=== PATIENT | male | born 1985 | race African-American/Black ===

== ENCOUNTER 2019-09-08 06:27 | Emergency (ER) | payer OTHER, SELFPAY ==
[2019-09-08 06:35] VITALS: BP 136/86; PULSE 15; RESP 18; TEMP 37.5; O2SAT 95
--- NOTE | 2019-09-08 07:38 | ED.URI ---
HPI - URI/Sore Throat General Chief Complaint: Upper Respiratory Infection Stated Complaint: flu s/s Time Seen by Provider: 09/08/19 06:41 Source: patient Mode of arrival: ambulatory Limitations: no limitations History of Present Illness HPI Narrative: Patient is a 34-year-old male who presents to the emergency department with complaint of flulike symptoms. Patient reports onset of symptoms yesterday. He complains of headache, myalgias, feeling weak cough, congestion, chills, and sweats. Patient states he has had coworkers that been ill with similar symptoms. Patient is uncertain if he has had a fever as he does not have a thermometer at home. Patient is otherwise healthy. MD elicited complaint: other (flu-like symptoms) Onset (ago): day(s) Context: sick contacts Associated symptoms: fever, chills, myalgias, headache, nasal congestion, cough and ear pain Treatments prior to arrival: ibuprofen Related Data Home Medications Medication Instructions Recorded Confirmed Daily Multivitamin 1 tab-cap PO DAILY 09/08/19 09/08/19 Allergies Allergy/AdvReac Type Severity Reaction Status Date / Time No Known Allergies Allergy Verified 09/08/19 06:37 Review of Systems Review of Systems: All systems reviewed & are unremarkable except as noted in HPI and below Constitutional: Constitutional: Reports chills, Reports excessive sweating and Reports fatigue ENT: Reports otalgia, Reports nasal congestion and Reports sore throat Respiratory: Respiratory: Reports cough Gastrointestinal: Gastrointestinal: Denies abdominal pain, Denies diarrhea, Denies nausea and Denies vomiting Musculoskeletal: Musculoskeletal: Reports myalgias Neurologic: Reports headache(s) PMFSH Past Medical History Medical History (Updated 09/08/19 @ 07:44 by Stacy Gold MD) Achilles tendon rupture DVT (deep venous thrombosis) Surgical History Surgical History (Updated 09/08/19 @ 07:41 by Stacy Gold MD) H/O Achilles tendon repair History of arthroscopy of left knee Social History Social History (Updated 06/29/19 @ 04:11 by Rosalia Platt MD) Social History: Denies tobacco, alcohol, drug use Smoking status: Never smoker Exam Const: General: cooperative, no acute distress and alert Nutritional Appearance: well nourished Orientation/consciousness: patient oriented x3 Limitations: no limitations HENMT: Mouth: Yes lip normal and Yes moist mucous membranes Resp: Effort & Inspection: normal respiratory effort Auscultation: clear to auscultation bilaterally Cardio: Rate: regular rate Rhythm: regular rhythm GI: GI Palp: Yes Soft to palpation and No Tenderness to palpation present (GI) Auscultation: normal bowel sounds Skin: General skin exam: normal color Neuro: General: patient oriented x3 Cognition (Neuro): normal cognition Speech: normal speech Extrem: General: normal to inspection, full ROM and no clubbing, cyanosis or edema Psych: Mental Status: mental status grossly normal Affect: normal affect Attitude: cooperative Course Course Emergency Course: Influenza testing negative. Patient counseled on management of viral syndrome. Vital Signs Vital signs: Vital Signs Temperature 99.5 F 09/08/19 06:35 Pulse Rate 15 L 09/08/19 06:35 Respiratory Rate 18 09/08/19 06:35 Blood Pressure 136/86 09/08/19 06:35 Pulse Oximetry 95 09/08/19 06:35 Temperature 99.5 F 09/08/19 06:35 Pulse Rate 15 L 09/08/19 06:35 Respiratory Rate 18 09/08/19 06:35 Blood Pressure 136/86 09/08/19 06:35 Pulse Oximetry 95 09/08/19 06:35 MDM - URI/Sore Throat Lab Data Attestation: I reviewed the patient's lab results. Labs: Influenza A Screen Negative Reference Range: Negative Influenza B Screen Negative Reference Range: Negative Critical Care Time Critical Care Time Critical Care Time: No Discharge Plan Discharge Clinical Impression:
[2019-09-08 07:50] VITALS: RESP 16
== END 2019-09-08 07:50 | disposition home or self-care (01) ==
PROVIDERS: Emergency Provider Emergency Medicine
DX: J11.1 Influenza due to unidentified influenza virus with other respiratory manifestations (principal)
CPT/HCPCS: 87804; 99283

== ENCOUNTER 2019-09-09 10:37 | Emergency (ER) | payer OTHER, SELFPAY ==
--- NOTE | ~2019-09-09 | XR_ITS ---
EXAMINATION: XR chest 2V EXAM DATE: 09/09/2019 12:47 INDICATION: cough, fever, dyspnea. TECHNIQUE: Frontal and lateral projections of the chest obtained and reviewed. Comparison is made to prior examination from 10/29/2016. FINDINGS: The lungs are clear. There are no pleural effusions. The cardiomediastinal silhouette is within normal limits. There is no pneumothorax suspected. The bones and soft tissues are unremarkab le. IMPRESSION: Normal chest x-ray exam. Reviewed, dictated and finalized at location A. E TEACHER IMPRESSION: Normal chest x-ray exam.
[2019-09-09 11:01] VITALS: BP 140/81; PULSE 80; RESP 18; TEMP 36.7; O2SAT 97
--- NOTE | 2019-09-09 11:54 | ED.GENADULT ---
HPI - General Adult General Chief complaint: Unspecified Stated complaint: diff breathing, here yesterday for same Time Seen by Provider: 09/09/19 11:53 Source: patient Mode of arrival: ambulatory Limitations: no limitations History of Present Illness HPI narrative: This is a 34 year old male that presents to the ER for cold symptoms x 3 days. Reports fever, cough, congestion and rhinorrhea. Reports constant tightness in his chest for the last couple of days. Reports sharp pains in his chest and back when he coughs. Reports he was seen here for this yesterday. Reports he has had no relief in symptoms. Denies sore throat or shortness of breath. Related Data Home Medications Medication Instructions Recorded Confirmed Daily Multivitamin 1 tab-cap PO DAILY 09/08/19 09/08/19 Allergies Allergy/AdvReac Type Severity Reaction Status Date / Time No Known Allergies Allergy Verified 09/09/19 11:07 Review of Systems Review of Systems: Narrative: CONSTITUTIONAL: Reports fever, chills ENT: Reports rhinorrhea, congestion. Denies sore throat, or otalgia. CARDIOVASCULAR: Reports chest pain. Denies edema. RESPIRATORY: Reports cough. Denies dyspnea. All systems reviewed & are unremarkable except as noted in HPI and below PMFSH Past Medical History Medical History (Updated 09/09/19 @ 13:26 by Dania Hector PA-C) Achilles tendon rupture DVT (deep venous thrombosis) Surgical History Surgical History (Updated 09/08/19 @ 07:41 by Stacy Gold MD) H/O Achilles tendon repair History of arthroscopy of left knee Social History Social History (Updated 06/29/19 @ 04:11 by Rosalia Platt MD) Social History: Denies tobacco, alcohol, drug use Smoking status: Never smoker Gender identity (if verbalized by the patient): Male Exam Narrative: Exam Narrative: GENERAL: Well-appearing, well-nourished, and in no acute distress. HEAD: Normocephalic, atraumatic. EYES: EOMI. ENT: Turbinates swollen and pale. Mucous membranes moist. Oropharynx with mild symmetric tonsillar hypertrophy, no exudate or other lesions. Bilateral TMs pearly marte non-bulging NECK: Supple. No adenopathy or masses. CHEST: Clear to auscultation. No respiratory distress. No wheezes rales or rhonchi HEART: Regular rate and rhythm. No murmur heard. Normal peripheral pulses. EXTREMITIES: Normal range of motion. No edema. SKIN: Warm, dry, no rash. NEURO: No focal deficits. Alert and oriented x3. PSYCH: Normal mood and affect Course Vital Signs Vital signs: Vital Signs Temperature 98.0 F 09/09/19 11:01 Pulse Rate 80 09/09/19 11:01 Respiratory Rate 18 09/09/19 11:01 Blood Pressure 140/81 09/09/19 11:01 Pulse Oximetry 97 09/09/19 11:01 Temperature 98.0 F 09/09/19 11:01 Pulse Rate 89 09/09/19 12:29 Respiratory Rate 16 09/09/19 12:29 Blood Pressure 140/81 09/09/19 11:01 Pulse Oximetry 97 09/09/19 11:01 Medical Decision Making MDM Narrative Medical decision making narrative: Patient presents to the ER for cold symptoms x 3 days. Also reports some chest tightness for the last couple days. Reports improvement with nebulizer treatment. He is afebrile and nontoxic-appearing. Influenza A is positive. CBC and metabolic panel without acute changes. Troponin and d-dimer are not elevated. Chest x-ray without acute changes. Patient was updated on case findings. He was instructed on [id number] symptomatic care as he is out of treatment window and otherwise healthy. He is to follow-up with primary care doctor. He was given warnings to return to the ER Vital Signs Vital Signs: Vital Signs Temperature 98.0 F 09/09/19 11:01 Pulse Rate 80 09/09/19 11:01 Respiratory Rate 18 09/09/19 11:01 Blood Pressure 140/81 09/09/19 11:01 Pulse Oximetry 97 09/09/19 11:01 Temperature 98.0 F 09/09/19 11:01 Pulse Rate 89 09/09/19 12:29 Respiratory Rate 16 09/09/19 12:29 Blood Pressure 140/8
--- NOTE | 2019-09-09 12:03 | ECG_ITS ---
Measurements Intervals [place] Rate: 77 P: 152 [place]: 151 QRS: -20 QRSD: 86 T: -25 QT: 331 QTc: 376 Interpretive Statements ECTOPIC ATRIAL RHYTHM POSSIBLE LEFT ATRIAL ENLARGEMENT BORDERLINE T WAVE ABNORMALITY- INFERIOR LEADS BASELINE ARTIFACT- I, II, AVR, AVF ABNORMAL ECG Electronically Signed On 09-09-2019 13:05:24 [employer] BUSINESS DEVELOPMENT MANAGER by Domingo Sanchez D.O.
[2019-09-09] MEDS: ALBUTEROL SULFATE NEB 2.5 MG/0.5 ML INH 5 MG INHALATION (12:19)
[2019-09-09] MEDS: IPRATROPIUM BR 0.02% INH SOLN 0.5 MG/2.5 ML VIAL INHALATION (12:20)
[2019-09-09 12:21] VITALS: PULSE 79; RESP 11
[2019-09-09 12:29] VITALS: PULSE 89; RESP 16
[2019-09-09 12:34] LABS: Basophils Percent Auto 0.5 % (0.2-1.2); Hemoglobin 15.9 g/dL (14.0-18.0); Immature Granulocyte Absolute 0.02 K/mm3 (0.00-0.031); Immature Granulocyte Percent A 0.3 % (0-0.5); Lymphocytes Absolute Auto 1.16 K/mm3 (0.9-3.2); Lymphocytes Percent Auto 17.6 % (18.3-44.2); Mean Corpuscular HGB Conc 33.1 g/dl (32-36); Mean Corpuscular Hemoglobin 28.8 pg (26-34); Mean Platelet Volume 10.1 fl (7.4-10.4); Monocytes Absolute Auto 1.2 K/mm3 (0.1-0.6); Monocytes Percent Auto 17.4 % (2.6-8.5); Neutrophils Absolute Auto 4.2 K/mm3 (1.3-6.7); Neutrophils Percent Auto 64.2 % (45.5-73.1); Platelet Count Result 206 k/mm3 (150-375); Red Blood Count 5.52 M/mm3 (4.6-6.20); Red Cell Distribution Width 12.7 % (11.5-14.5); White Blood Count 6.6 K/mm3 (4.5-10.0)
[2019-09-09 12:45] LABS: Blood Urea Nitrogen 13 mg/dL (9-20); Calcium 9.5 mg/dL (8.4-10.2); Carbon Dioxide 27 mmol/L (22-30); Chloride 96 mmol/L (98-107); Estimated CRCL calculation 97 ml/min; Estimated Glomerular Filt Rate > 60; Glucose 86 mg/dL (75-110); Potassium 3.8 mmol/L (3.4-5.0); Sodium 137 mmol/L (137-145)
[2019-09-09 12:49] LABS: D Dimer 0.39 ug/mL (<0.48)
[2019-09-09 12:57] LABS: Troponin I < 0.012 ng/mL (0.000-0.034)
[2019-09-09 15:26] VITALS: BP 142/84; PULSE 87; RESP 16; O2SAT 97
== END 2019-09-09 14:00 | disposition home or self-care (01) ==
PROVIDERS: Physician Assistant; Emergency Provider Emergency Medicine
DX: J10.1 Influenza due to other identified influenza virus with other respiratory manifestations (principal); Z86.718 Personal history of other venous thrombosis and embolism
CPT/HCPCS: 36415; 71046; 80048; 84484; 85025; 85380; 87804; 93005; 94640; 99284

== ENCOUNTER 2020-04-14 16:06 | Emergency (ER) | payer OTHER, SELFPAY ==
[2020-04-14] VITALS (19 sets, daily range): BP systolic 135–182; BP diastolic 68–94; PULSE 78–102; RESP 12–20; TEMP 37.3–38.5; O2SAT 97–100
--- NOTE | ~2020-04-14 | CT_ITS ---
EXAMINATION: CT abdomen pelvis w con DATE: 04/14/2020 18:50 INDICATION: Epigastric abdominal pain. Fever. Flank pain. TECHNIQUE: Computed tomography (CT) of the abdomen and pelvis was performed with 100 mL Omnipaque 350 intravenous contrast. Automated exposure control and iterative reconstruction technique were employe d. The dose-length product was 1194.29 mGy-cm. COMPARISON: CT abdomen and pelvis 03/06/2017 FINDINGS: The visualized portions of the lung bases demonstrate a calcified nodule in right lung, con sistent with old granulomatous disease. There are groundglass opacities in the lingula, consistent wi th pneumonia. No pleural effusion. The heart size is normal. No pericardial effusion. There is diffus e hepatic steatosis. The gallbladder, spleen, pancreas, adrenal glands, and kidneys are normal. There are no dilated loops of bowel. The appendix is normal. There are no pathologically enlarged lymph no sherwin. There is no free intraperitoneal fluid. There is mild thoracolumbar spondylosis. IMPRESSION: 1. Mild pneumonia in the lingula. Reviewed, dictated and finalized at location A.
--- NOTE | ~2020-04-14 | XR_ITS ---
EXAMINATION: XR chest 1V portable DATE: 04/14/2020 17:28 INDICATION: Pleuritic chest pain. Fever and chills. TECHNIQUE: A single frontal view of the chest was obtained on 2 radiographs. COMPARISON: Chest 2 views 09/09/2019, CT abdomen and pelvis 03/06/2017 FINDINGS: A calcified left lung nodule is consistent with old granulomatous disease. There are mild a irspace opacities in left lower lung zone. No pleural effusion or pneumothorax. The heart size is nor mal. IMPRESSION: 1. Mild airspace opacities in left lower lung zone, consistent with atelectasis versus pneumonia. Reviewed, dictated and finalized at location A.
--- NOTE | 2020-04-14 17:08 | ECG_ITS ---
Measurements Intervals [place] Rate: 94 P: 62 [place]: 147 QRS: 18 QRSD: 93 T: 31 QT: 327 QTc: 409 Interpretive Statements SINUS RHYTHM BASELINE WANDER- I, III, AVR, AVL, AVF, V1-V6 BORDERLINE ECG Electronically Signed On 04-14-2020 20:47:45 CDT by Domingo Sanchez D.O.
--- NOTE | 2020-04-14 17:13 | ED.FEVER ---
HPI - Fever General Chief Complaint: Upper Respiratory Infection Stated Complaint: chills, fever, aches, headache, covid symptoms Time Seen by Provider: 04/14/20 16:45 Source: patient Mode of arrival: ambulatory Limitations: no limitations History of Present Illness HPI Narrative: This is a 34-year-old male that presents the emergency department for fever since this afternoon. Associated with congestion, nausea, flank pain. Reports there have been positive COVID cases at his work. Reports chest pain with deep breathing. Denies cough, shortness of breath, dysuria, hematuria. Related Data Home Medications Medication Instructions Recorded Confirmed Daily Multivitamin 1 tab-cap PO DAILY 09/08/19 09/08/19 Allergies Allergy/AdvReac Type Severity Reaction Status Date / Time No Known Allergies Allergy Verified 09/09/19 11:07 Review of Systems Review of Systems: Narrative: CONSTITUTIONAL: Reports fever, chills ENT: Reports congestion. Denies sore throat, or otalgia. CARDIOVASCULAR: Reports chest pain RESPIRATORY: Denies cough or dyspnea. GASTROINTESTINAL: Reports abdominal pain, nausea. Denies vomiting, or diarrhea. GENITOURINARY: Denies dysuria or hematuria. All systems reviewed & are unremarkable except as noted in HPI and below PMFSH Past Medical History Medical History (Updated 04/14/20 @ 19:44 by Dania Hector PA-C) Achilles tendon rupture DVT (deep venous thrombosis) Surgical History Surgical History (Updated 09/08/19 @ 07:41 by Stacy Gold MD) H/O Achilles tendon repair History of arthroscopy of left knee Social History Social History (Updated 06/29/19 @ 04:11 by Rosalia Platt MD) Social History: Denies tobacco, alcohol, drug use Smoking status: Never smoker Gender identity (if verbalized by the patient): Male Exam Narrative: Exam Narrative: GENERAL: Well-appearing, well-nourished, and in no acute distress. HEAD: Normocephalic, atraumatic. EYES: EOMI. ENT: Nares clear, no rhinorrhea or epistaxis. Mucous membranes moist. Oropharynx without tonsillar hypertrophy exudate or other lesions. Bilateral TMs pearly marte non-bulging NECK: Supple. No adenopathy or masses. CHEST: Clear to auscultation. No respiratory distress. No wheezes rales or rhonchi HEART: Regular rate and rhythm. No murmur heard. Normal peripheral pulses. ABDOMEN: Soft, nontender, nondistended, normal active bowel sounds. EXTREMITIES: Normal range of motion. No edema. SKIN: Warm, dry, no rash. NEURO: No focal deficits. Alert and oriented x3. PSYCH: Normal mood and affect Course Vital Signs Vital signs: Vital Signs Temperature 101.3 F H 04/14/20 16:22 Pulse Rate 96 04/14/20 16:22 Respiratory Rate 20 04/14/20 16:22 Blood Pressure 182/94 H 04/14/20 16:22 Pulse Oximetry 100 04/14/20 16:22 Temperature 99.1 F 04/14/20 18:27 Pulse Rate 101 H 04/14/20 19:15 Respiratory Rate 18 04/14/20 19:01 Blood Pressure 157/88 H 04/14/20 19:01 Pulse Oximetry 97 04/14/20 19:15 MDM - Fever MDM Narrative Medical decision making narrative: Patient presents the emergency department for fever, flank pain, congestion. Reports positive COVID cases at his work. Patient febrile upon arrival, given antipyretic while in the ED. Blood pressure elevated on arrival to 182/94, this improved without intervention. Most recent blood pressure 157/88. CBC with leukocytosis to 15. Metabolic panel with mild elevation in ALT, which seems to be chronic for patient. Lipase is normal. UA without evidence of infection. Lactic acid is normal. EKG without concerning changes. Troponin and d-dimer are negative. Chest x-ray shows airspace opacities in the left lower lung zone. CT of the abdomen and pelvis shows mild pneumonia in the lingula. SARS-CoV-2 was sent. Patient is stable and felt appropriate further outpatient evaluation. He will be started on oral antibiotics for pneumonia. He is to follow-up with kelly
[2020-04-14] MEDS: IBUPROFEN 600 MG TABLET PO (17:33)
[2020-04-14 17:36] LABS: Basophils Absolute Auto 0.1 K/mm3 (0.0-0.1); Basophils Percent Auto 0.3 % (0.2-1.2); Eosinophils Absolute Auto 0.1 K/mm3 (0-0.3); Eosinophils Percent Auto 0.9 % (0-4.4); Hematocrit 44.3 % (42.0-52.0); Hemoglobin 15.7 g/dL (14.0-18.0); Immature Granulocyte Absolute 0.05 K/mm3 (0.00-0.031); Immature Granulocyte Percent A 0.3 % (0-0.5); Lymphocytes Absolute Auto 2.04 K/mm3 (0.9-3.2); Lymphocytes Percent Auto 13.5 % (18.3-44.2); Mean Corpuscular HGB Conc 35.4 g/dl (32-36); Mean Corpuscular Hemoglobin 29.9 pg (26-34); Mean Corpuscular Volume 84.4 fl (80-100); Mean Platelet Volume 9.9 fl (7.4-10.4); Monocytes Percent Auto 6.9 % (2.6-8.5); Neutrophils Absolute Auto 11.8 K/mm3 (1.3-6.7); Neutrophils Percent Auto 78.1 % (45.5-73.1); Platelet Count Result 226 k/mm3 (150-375); Red Blood Count 5.25 M/mm3 (4.6-6.20); Red Cell Distribution Width 12.7 % (11.5-14.5); White Blood Count 15.1 K/mm3 (4.5-10.0)
[2020-04-14 17:48] LABS: Lactic Acid Reflex 1.8 mmol/L (0.7-2.1)
[2020-04-14 17:51] LABS: Alanine Aminotransferase 89 U/L (4-50); Albumin Level 4.6 g/dL (3.5-5.1); Alkaline Phosphatase 47 U/L (38-126); Anion Gap 11 mmol/L (8-16); Aspartate Amino Transferase 57 U/L (17-59); Bilirubin,Total 0.7 mg/dL (0.2-1.3); Blood Urea Nitrogen 11 mg/dL (9-20); CRP 0.6 mg/dL (<1.0); Calcium 9.5 mg/dL (8.4-10.2); Carbon Dioxide 23 mmol/L (22-30); Chloride 104 mmol/L (98-107); Estimated Glomerular Filt Rate > 60; Glucose 96 mg/dL (75-110); Lactate Dehydrogenase 584 U/L (313-618); Lipase 54 U/L (23-300); Potassium 4.1 mmol/L (3.4-5.0); Sodium 138 mmol/L (137-145)
[2020-04-14 17:58] LABS: Add Urine Microscopic? YES; Appearance Urine Clear (Clear); Bilirubin Urine Negative (Negative); Blood Urine Negative (Negative); Color Urine Straw (Yellow); Glucose Urine UA Negative (Negative); Ketones Urine Negative (Negative); Leukocyte Esterase Ur Negative LEU/UL (Negative); Mucus Urine Rare /lpf; Nitrate Urine Negative (Negative); Protein Urine Negative (Negative); RBC Urine 0-2 /hpf (0-2); Specific Grav Ur 1.011 (1.001-1.035); Urobilinogen Urine Negative mg/dL (<2.0); WBC Urine 0-3 /hpf
[2020-04-14 18:00] LABS: Troponin I < 0.012 ng/mL (0.000-0.034)
[2020-04-14 18:04] LABS: Prothrombin Time 12.4 Seconds (11.1-14.7)
[2020-04-14 18:05] LABS: Partial Thromboplastin Time 26.6 SECONDS (22.3-36.8)
[2020-04-14 18:18] LABS: D Dimer 0.27 ug/mL (<0.48)
[2020-04-16 12:20] LABS: SARS-CoV-2 RNA PCR Negative
== END 2020-04-14 20:16 | disposition home or self-care (01) ==
PROVIDERS: Physician Assistant; Emergency Provider Emergency Medicine
DX: Z20.828 Contact with and (suspected) exposure to other viral communicable diseases (principal); J18.9 Pneumonia, unspecified organism
CPT/HCPCS: 36415; 71045; 74177; 80053; 81001; 83605; 83615; 83690; 84484; 85025; 85380; 85610; 85730; 86140; 87040; 87635; 93005; 99284; A9270; C9803; Q9967; U0003

== ENCOUNTER 2020-10-12 22:18 | Emergency (ER) | payer OTHER, SELFPAY ==
--- NOTE | ~2020-10-12 | CT_ITS ---
EXAMINATION: CT abdomen pelvis wo con DATE: 10/12/2020 22:58 INDICATION: Right flank pain. Nausea. TECHNIQUE: Computed tomography (CT) of the abdomen and pelvis was performed without intravenous contr ast. The dose-length product was 1450.38 mGy-cm. Automated exposure control and iterative reconstruct ion technique were employed. COMPARISON: CT dated 04/14/2020 FINDINGS: Heart size is normal. No significant pleural or pericardial effusion. No significant vascul ar abnormality. No lymphadenopathy. Fatty infiltration of the liver. Gallbladder is present. The spleen, pancreas, adrenal glands and kid neys are unremarkable. No significant hydronephrosis. Normal appendix. Nonobstructive bowel gas patte rn. No free air or free fluid. IMPRESSION: 1. No acute abdominal abnormality. 2: Hepatic steatosis. Reviewed, dictated and finalized at location A. 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
[2020-10-12 22:22] VITALS: BP 151/89; PULSE 71; RESP 16; TEMP 37; O2SAT 100
[2020-10-12] MEDS: ONDANSETRON INJ 4 MG/2 ML VIAL IV PUSH (22:40)
[2020-10-12] MEDS: KETOROLAC 30 MG/ML VIAL (*BKC) IV PUSH (22:40)
[2020-10-12] MEDS: SODIUM CHLORIDE 0.9% IV 1,000 ML 999 ML IV CONT (22:40)
[2020-10-12 22:50] LABS: Basophils Absolute Auto 0.1 K/mm3 (0.0-0.1); Basophils Percent Auto 0.6 % (0.2-1.2); Eosinophils Absolute Auto 0.2 K/mm3 (0-0.3); Eosinophils Percent Auto 2.9 % (0-4.4); Hematocrit 43.2 % (42.0-52.0); Immature Granulocyte Absolute 0.03 K/mm3 (0.00-0.031); Immature Granulocyte Percent A 0.4 % (0-0.5); Lymphocytes Absolute Auto 2.85 K/mm3 (0.9-3.2); Lymphocytes Percent Auto 36.4 % (18.3-44.2); Mean Corpuscular HGB Conc 34.7 g/dl (32-36); Mean Corpuscular Hemoglobin 30.1 pg (26-34); Mean Corpuscular Volume 86.7 fl (80-100); Mean Platelet Volume 9.7 fl (7.4-10.4); Monocytes Absolute Auto 0.8 K/mm3 (0.1-0.6); Monocytes Percent Auto 9.8 % (2.6-8.5); Neutrophils Absolute Auto 3.9 K/mm3 (1.3-6.7); Neutrophils Percent Auto 49.9 % (45.5-73.1); Platelet Count Result 231 k/mm3 (150-375); Red Blood Count 4.98 M/mm3 (4.6-6.20); Red Cell Distribution Width 12.8 % (11.5-14.5); White Blood Count 7.8 K/mm3 (4.5-10.0)
--- NOTE | 2020-10-12 22:52 | PC.NURSE ---
pt to CT at this time
[2020-10-12 23:02] LABS: Alanine Aminotransferase 179 U/L (4-50); Albumin Level 4.4 g/dL (3.5-5.1); Alkaline Phosphatase 48 U/L (38-126); Anion Gap 7 mmol/L (8-16); Aspartate Amino Transferase 104 U/L (17-59); Bilirubin,Total 0.5 mg/dL (0.2-1.3); Blood Urea Nitrogen 12 mg/dL (9-20); Calcium 9.6 mg/dL (8.4-10.2); Carbon Dioxide 29 mmol/L (22-30); Chloride 102 mmol/L (98-107); Estimated CRCL calculation 114 ml/min; Estimated Glomerular Filt Rate > 60; Glucose 87 mg/dL (75-110); Lipase 91 U/L (23-300); Potassium 3.8 mmol/L (3.4-5.0); Sodium 138 mmol/L (137-145)
[2020-10-12 23:11] LABS: Add Urine Microscopic? NO; Appearance Urine Clear (Clear); Bilirubin Urine Negative (Negative); Blood Urine Negative (Negative); Color Urine Straw (Yellow); Glucose Urine UA Negative (Negative); Ketones Urine Negative (Negative); Leukocyte Esterase Ur Negative LEU/UL (Negative); Nitrate Urine Negative (Negative); Protein Urine Negative (Negative); Specific Grav Ur 1.005 (1.001-1.035); Urobilinogen Urine Negative mg/dL (<2.0); WBC Urine 0-3 /hpf
[2020-10-12 23:31] VITALS: BP 140/79; PULSE 70; RESP 18; O2SAT 99
--- NOTE | 2020-10-13 00:11 | ED.GENADULT ---
HPI - General Adult General Chief complaint: Abdominal Pain Stated complaint: R flank pain Time Seen by Provider: 10/12/20 22:27 History of Present Illness HPI narrative: Patient a 35-year-old gentleman who presents the emergency department with chief complaint of abdominal pain and flank pain. Patient states that he has been having epigastric and right flank pain for several weeks states that its not improved by anything reports that is now mostly localized to more of the right flank area. Patient states that it is not worsened by anything nor is it improved by anything. Patient denies fever denies nausea vomiting or diarrhea. Patient denies blood in his urine denies blood in his stool. Related Data Home Medications Medication Instructions Recorded Confirmed Daily Multivitamin 1 tab-cap PO DAILY 09/08/19 09/08/19 Allergies Allergy/AdvReac Type Severity Reaction Status Date / Time No Known Allergies Allergy Verified 09/09/19 11:07 Review of Systems Review of Systems: Narrative: A 10 system review of systems was completed on the patient and is negative except for what is stated in the HPI. Nursing and ancillary documentation was reviewed. [facility] Past Medical History Medical History Achilles tendon rupture DVT (deep venous thrombosis) Surgical History Surgical History H/O Achilles tendon repair History of arthroscopy of left knee Social History Social History Social History: Denies tobacco, alcohol, drug use Smoking status: Never smoker Gender identity (if verbalized by the patient): Male Exam Narrative: Exam Narrative: GENERAL: Well-appearing, well-nourished, and in no acute distress. HEAD: Normocephalic, atraumatic. EYES: PERRLA and EOMI. ENT: Nares clear, no rhinorrhea or epistaxis. Mucous membranes moist. NECK: Supple. CHEST: Clear to auscultation. No respiratory distress. HEART: Regular rate and rhythm. No murmur heard. Normal peripheral pulses. ABDOMEN: Soft, nontender, nondistended, normal active bowel sounds. EXTREMITIES: Normal range of motion. No edema. SKIN: Warm, dry, no rash. NEURO: No focal deficits. Alert and oriented x3. PSYCH: Normal mood and affect. Course Course Emergency Course: CT scan of the abdomen pelvis showed no evidence of acute abnormality. Liver enzymes were mildly elevated on his electrolytes otherwise there is no abnormalities in the labs urinalysis was negative. Vital Signs Vital signs: Vital Signs Temperature 37.0 C 10/12/20 22:22 Pulse Rate 71 10/12/20 22:22 Respiratory Rate 16 10/12/20 22:22 Blood Pressure 151/89 H 10/12/20 22:22 Pulse Oximetry 100 10/12/20 22:22 Temperature 37.0 C 10/12/20 22:22 Pulse Rate 70 10/12/20 23:31 Respiratory Rate 18 10/12/20 23:31 Blood Pressure 140/79 10/12/20 23:31 Pulse Oximetry 99 10/12/20 23:31 Medical Decision Making Vital Signs Vital Signs: Vital Signs Temperature 37.0 C 10/12/20 22:22 Pulse Rate 71 10/12/20 22:22 Respiratory Rate 16 10/12/20 22:22 Blood Pressure 151/89 H 10/12/20 22:22 Pulse Oximetry 100 10/12/20 22:22 Temperature 37.0 C 10/12/20 22:22 Pulse Rate 70 10/12/20 23:31 Respiratory Rate 18 10/12/20 23:31 Blood Pressure 140/79 10/12/20 23:31 Pulse Oximetry 99 10/12/20 23:31 Lab Data Result diagrams: 10/12/20 22:43 10/12/20 22:43 Labs: Lab Results 10/12/20 10/12/20 10/12/20 Range/Units 22:43 22:43 22:43 WBC 7.8 (4.5-10.0) K/mm3 RBC 4.98 (4.6-6.20) M/mm3 Hgb 15.0 (14.0-18.0) g/dL Hct 43.2 (42.0-52.0) % MCV 86.7 (80-100) fl MCH 30.1 (26-34) pg MCHC 34.7 (32-36) g/dl RDW 12.8 (11.5-14.5) % Plt Count 231 (150-375) k/mm3 MPV 9.7 (7.4-10.4) fl Immatu
[2020-10-13 00:40] VITALS: BP 119/85; PULSE 65; RESP 18; O2SAT 99
== END 2020-10-13 00:41 | disposition home or self-care (01) ==
PROVIDERS: Emergency Provider Emergency Medicine
DX: R10.9 Unspecified abdominal pain (principal); Z86.718 Personal history of other venous thrombosis and embolism; K76.0 Fatty (change of) liver, not elsewhere classified
CPT/HCPCS: 36415; 74176; 80053; 81003; 83690; 85025; 96361; 96374; 96375; 99284; J1885; J2405; J7030

== ENCOUNTER 2020-10-16 18:33 | Emergency (ER) | payer OTHER, SELFPAY ==
--- NOTE | 2020-10-16 18:34 | ED.GENADULT ---
HPI - General Adult General Chief complaint: Urogenital-Male Stated complaint: Stomach pain,flank pain Time Seen by Provider: 10/16/20 18:34 Source: patient Mode of arrival: ambulatory Limitations: no limitations History of Present Illness HPI narrative: 35-year-old male patient presents to the [facility] with complaints of right flank and abdominal pain for the past 2 weeks that has gotten increasingly worse past 3 to 4 days. Patient was seen at [place] [facility] about 3 days ago and had a full work-up including a CT and full blood test. At that time there is nothing noted to cause his pain. Was negative for any kidney stones however it was noted that his liver enzymes were high. Patient was told to follow-up with primary care but states he never followed up with anybody states he does not have a primary care provider at this time. Patient denies any alcohol use denies taking any medications with a lot of Tylenol in it. Related Data Home Medications Medication Instructions Recorded Confirmed No Home Medications 10/16/20 10/16/20 Allergies Allergy/AdvReac Type Severity Reaction Status Date / Time No Known Allergies Allergy Verified 10/16/20 18:58 Review of Systems Review of Systems: Narrative: CONSTITUTIONAL: Denies fever, chills, or sweats. EYES: Denies visual changes, redness, or discharge. ENT: Denies rhinorrhea, congestion, sore throat, or otalgia. CARDIOVASCULAR: Denies chest pain, palpitations, or edema. RESPIRATORY: Denies cough or dyspnea. GASTROINTESTINAL: Positive abdominal pain, denies nausea, vomiting, or diarrhea. GENITOURINARY: Denies dysuria or hematuria. SKIN: Denies rash or itching. MUSCULOSKELETAL: Denies back pain, joint pain, or myalgia. NEUROLOGIC: Denies headache, numbness, or weakness. PSYCHIATRIC: Denies anxiety or depression. [facility] Past Medical History Medical History Achilles tendon rupture DVT (deep venous thrombosis) Surgical History Surgical History H/O Achilles tendon repair History of arthroscopy of left knee Social History Social History Social History: Denies tobacco, alcohol, drug use Smoking status: Never smoker Gender identity (if verbalized by the patient): Male Comments At the time of my signature I agree with nursing past medical history, surgical, social, and family history. There is no relevant family history pertinent to the presenting complaint. Exam Narrative: Exam Narrative: GENERAL: Well-appearing, well-nourished, and in no acute distress. HEAD: Normocephalic, atraumatic. EYES: PERRLA and EOMI. ENT: Nares clear, no rhinorrhea or epistaxis. Mucous membranes moist. NECK: Supple. No lymphadenopathy CHEST: Clear to auscultation. No respiratory distress. HEART: Regular rate and rhythm. No murmur heard. Normal peripheral pulses. ABDOMEN: Soft, nondistended. No guarding, rebound tenderness, or rigid. No pulsatilla masses. Bowel sounds present in all four quadrants. No organomegaly. Negative Wynn?s sign. No periumbicial tenderness. No Supra public tenderness or distension. Good femoral pulses bilaterally. No hernia noted. No scars or surface trauma. EXTREMITIES: Normal range of motion. No edema. SKIN: Warm, dry, no rash. NEURO: No focal deficits. Alert and oriented x3. Course Vital Signs Vital signs: Vital signs reviewed Medical Decision Making Differential Diagnosis Differential Diagnosis: Differential diagnosis: Uncomplicated lower UTI, uncomplicated UTI, polynephritis, penile trauma,balanoposthitis, phimosis, paraphimosis, testicular torsion, epididymitis, prostatitis, varicocele, spermatocele, hydrocele, hernia. Appendicitis, gallbladder disease, pancreatitis, lower lobe pneumonia,AAA, AMI or ACS, DKA, diverticulitis. Discussed with patient that we did do a urine dip on him today which was co
[2020-10-16 18:50] VITALS: BP 150/98; PULSE 80; RESP 18; TEMP 36.7; O2SAT 100
== END 2020-10-16 19:21 | disposition home or self-care (01) ==
PROVIDERS: Emergency Provider Nurse Practitioner Family
DX: R10.9 Unspecified abdominal pain (principal); Z86.718 Personal history of other venous thrombosis and embolism
CPT/HCPCS: 81003; 99212; G0463

== ENCOUNTER 2021-10-02 14:05 | Emergency (ER) | payer BC, SELFPAY ==
[2021-10-02 14:13] VITALS: BP 143/85; PULSE 70; RESP 16; TEMP 36.7; O2SAT 100
--- NOTE | 2021-10-02 14:23 | ED.BACK ---
HPI - Back Pain/Injury General Chief Complaint: Back Pain/Injury Stated Complaint: lower back pain Time Seen by Provider: 10/02/21 14:23 Source: patient Mode of arrival: ambulatory Limitations: no limitations History of Present Illness HPI Narrative: Julito Webb is a 36 yo male with no PMH who has back pain and radiates to foot, hurts with movement, started on Thursday after working on car on Thursday. Rates pain as severe when operating room; no urinary symptoms Related Data Home Medications Medication Instructions Recorded Confirmed multivitamin [A To Z Multivitamin] 1 tablet PO DAILY 10/02/21 10/02/21 Allergies Allergy/AdvReac Type Severity Reaction Status Date / Time No Known Allergies Allergy Verified 10/16/20 18:58 Review of Systems Review of Systems: CONSTITUTIONAL: Denies fever, chills, sweats. EYES: Denies visual changes, redness, discharge. ENT: Denies rhinorrhea, congestion, sore throat, otalgia. CARDIOVASCULAR: Denies chest pain, palpitations, edema. RESPIRATORY: Denies dyspnea, wheezing, cough GASTROINTESTINAL: Denies abdominal pain, nausea, vomiting, diarrhea. GENITOURINARY: Denies dysuria, hematuria, abnormal discharge SKIN: Denies rash or itching. NEUROLOGIC: Denies numbness, or focal weakness. PSYCHIATRIC: Denies anxiety or depression. Right back pain with radiation to leg PMFSH Past Medical History Medical History Achilles tendon rupture DVT (deep venous thrombosis) Surgical History Surgical History H/O Achilles tendon repair History of arthroscopy of left knee Social History Social History Social History: Denies tobacco, alcohol, drug use Smoking status: Never smoker Gender identity (if verbalized by the patient): Male Comments At time of signature, I agree with nursing past medical, surgical, social and family history. There is no relevant family history pertinent to the presenting complaint. Blood pressure elevation discussed with patient however follow-up for recheck in a week Exam Narrative: GENERAL: This is a well-nourished, well-developed patient, in mild distress. HEAD: normocephalic, atraumatic. EYES: Sclera clear/white. Vision is grossly intact. EARS: External ears normal, a Hearing grossly intact. NOSE: External nose normal without nasal discharge, nares without redness, no rhinorrhea. THROAT: Mucous membranes moist, NECK: Neck supple, CARDIOVASCULAR: Regular rate and rhythm without murmurs, gallops, or rubs. RESPIRATORY: Clear to auscultation. Breath sounds equal bilaterally. No wheezes, rales, or rhonchi. GASTROINTESTINAL: Abdomen soft, SKIN: warm, intact with no suspicious lesions or rash, good texture and turgor. NEURO: awake, alert, and oriented to person, place and time. There were no obvious focal neurologic abnormalities. Steady gait EXTREMITIES: Normal range of motion. BACK: Tender lower right side without deformity. States with movement that pain goes to the back of his thigh and also over towards his testicle. Course Course Emergency Course: Patient was working on a car sedentary Thursday developed back pain he thinks he may have tweaked his back but he is got pain radiating down his back of his thigh and also to his testicle and tightness at the lower right Started on steroids, ibuprofen 800 mg, pain medication- follow up with pcp Level of Care: Express Care Visit Vital Signs Vital signs: Vital Signs Temperature 98.0 F 10/02/21 14:13 Pulse Rate 70 10/02/21 14:13 Respiratory Rate 16 10/02/21 14:13 Blood Pressure 143/85 H 10/02/21 14:13 Pulse Oximetry 100 10/02/21 14:13 Temperature 98.0 F 10/02/21 14:13 Pulse Rate 70 10/02/21 14:13 Respiratory Rate 16 10/02/21 14:13 Blood Pressure 143/85 H 10/02/21 14:13 Pulse Oximetry 100 10/02/21 14:13
== END 2021-10-02 15:05 | disposition home or self-care (01) ==
PROVIDERS: Emergency Provider Nurse Practitioner
DX: M54.31 Sciatica, right side (principal); Z86.718 Personal history of other venous thrombosis and embolism
CPT/HCPCS: 99213; G0463

== ENCOUNTER 2021-12-24 12:22 | Emergency (ER) | payer BC, SELFPAY ==
[2021-12-24 12:30] VITALS: BP 141/89; PULSE 80; RESP 15; TEMP 36; O2SAT 100
--- NOTE | 2021-12-24 12:30 | ED.LOWEXIN ---
HPI - Extremity Injury (Lower) General Chief Complaint: Extremity Injury, Lower Stated Complaint: Left toe swollen Time Seen by Provider: 12/24/21 12:30 Source: patient Mode of arrival: ambulatory Limitations: no limitations History of Present Illness HPI Narrative: 36-year-old male presented for complaint of left great toe pain, redness, and swelling for 3 days. Denies injury. Rates pain 10 out of 10, worse with ambulating, slightly improved with rest. Denies history of gout. Has been taking ibuprofen as needed for pain. Related Data Home Medications Medication Instructions Recorded Confirmed multivitamin 1 tablet PO DAILY 10/02/21 12/24/21 Allergies Allergy/AdvReac Type Severity Reaction Status Date / Time No Known Allergies Allergy Verified 12/24/21 12:25 Review of Systems Review of Systems: CONSTITUTIONAL: Denies body aches, fever, chills EYES: Denies visual changes ENT: Denies rhinorrhea, congestion CARDIOVASCULAR: Denies chest pain, palpitations, or edema. RESPIRATORY: Denies cough or dyspnea. GASTROINTESTINAL: Denies abdominal pain, nausea, vomiting, or diarrhea. SKIN: Denies rash, itching, or wounds. MUSCULOSKELETAL: Reports toe pain NEUROLOGIC: Denies headache, numbness, tingling, or weakness. PSYCH: Denies depression or anxiety. All systems reviewed & are unremarkable except as noted in HPI and below PMFSH Past Medical History Medical History Achilles tendon rupture DVT (deep venous thrombosis) Surgical History Surgical History H/O Achilles tendon repair History of arthroscopy of left knee Social History Social History Social History: Denies tobacco, alcohol, drug use Smoking status: Never smoker Gender identity (if verbalized by the patient): Male Comments At time of signature, I have reviewed and agree with nursing past medical, surgical, social and family history unless otherwise noted. Please see nursing chart for further information. There is no relevant family history pertinent to the presenting complaint Exam Narrative: GENERAL:. Appears in pain HEAD: Normocephalic, atraumatic. EYES: conjunctivae clear NECK: Supple. CHEST: Speaks in full sentences. No respiratory distress. HEART: Regular rate and rhythm. Normal and equal peripheral pulses. EXTREMITIES: Left great toe with moderate erythema and swelling, exquisitely tender to palpation over the MTP middle phalanx, no ecchymosis, fluctuance. drainage, or induration. No open wounds, skin tenting, or obvious deformity;pulse palpable and equal bilaterally, skin warm, dry, pink. Capillary refill less than 3 seconds. SKIN: Warm, dry, no rash. NEURO: Alert and oriented x3. PSYCH: Normal mood and affect Course Course Emergency Course: Patient is aware of diagnosis, understands and agrees to treatment plan. Anticipatory guidance given. Patient agrees to follow-up as directed and is aware of reasons to seek care at the emergency department. Portions of this record may have been created with voice recognition software Level of Care: Express Care Visit Vital Signs Vital signs: Reviewed MDM - Extremity Injury (Lower) Differential Diagnosis Differential diagnosis: Likely fracture of toe and other (toe injury, gout) Discharge Plan Discharge Clinical Impression: Gout Patient Disposition: Home, Self-Care Condition: Stable Instructions: Antibiotic Form, Low Purine Diet (ED), Gout (ED) Additional Instructions: Avoid sugary drinks, alcohol, or coffee Avoid organ meat, red meat, and shellfish Take the steroid as directed Tylenol 1000mg every 8 hours as needed Follow up with your primary care provider as needed in 1-2 weeks Go to the ER for worsening symptoms or concerns Prescriptions: New prednisone 20 mg tablet 20 mg PO D
[2021-12-24 12:33] VITALS: BP 141/89; PULSE 80; RESP 15; TEMP 36; O2SAT 100
== END 2021-12-24 12:45 | disposition home or self-care (01) ==
PROVIDERS: Emergency Provider Nurse Practitioner Family
DX: M10.9 Gout, unspecified (principal); Z86.718 Personal history of other venous thrombosis and embolism
CPT/HCPCS: 99213; G0463